=== PATIENT | male | born 1965 | race Caucasian/White ===

== ENCOUNTER → 2017-08-28 | Outpatient (CLI) | payer OTHER ==
[2014-09-20 11:58] VITALS: BP 162/86
--- NOTE | 2017-08-28 11:03 | RAD ---
Examination: Lumbar spine, AP and lateral views History: Back pain, disability Findings: Essentially normal curvature, segmentation and alignment. Minimal disc narrowing and osteop hyte formation noted at L2-3. Osteophytes also noted at levels above and below this. The pedicles and sacroiliac joints are intact. There is no evidence for fracture or osteolytic disease. Impression: No acute process identified. Findings of degenerative disc disease and spondylosis, prima rily L2-3. Reported By:
== END ==
LOC: RAD 10:08
PROVIDERS: ATTEND Internal Medicine
DX: Z02.71 Encounter for disability determination (principal)
CPT/HCPCS: 72100